=== PATIENT | female | born 1995 | race Caucasian/White ===

== ENCOUNTER 2018-03-17 16:14 | Observation (INO) | payer MEDICAID ==
[~2018-03-17] VITALS: Ht 154.9 cm; Wt 54.9 kg
[2018-03-17] MEDS ORDERED: PREN-380 PO (17:02)
[2018-03-17 17:25] VITALS: BP 102/66
== END 2018-03-17 20:17 | disposition home or self-care (01) ==
LOC: MLD 16:14
PROVIDERS: ADMIT Obstetrics & Gynecology; ATTEND Obstetrics & Gynecology
DX: O62.9 Abnormality of forces of labor, unspecified (principal); Z3A.37 37 weeks gestation of pregnancy
CPT/HCPCS: 76805; G0378; Q0092

== ENCOUNTER 2018-03-31 10:30 | Inpatient (IN) | payer MEDICAID ==
[~2018-03-31] VITALS: Ht 154.9 cm; Wt 57.2 kg
[~2018-03-31 10:30] MED LIST: PREN-380 PO
[2018-04-01] MEDS ORDERED: LIDOCAINE MPF 1% - 5 mL VIAL 10 ML ONE (05:34)
[2018-04-01] MEDS ORDERED: OXYTOCIN 10 UNITS/ML VIAL ONE (05:35)
[2018-04-01] MEDS ORDERED: BUPIVACAINE 0.125%/NS PREMIX 0 ML ONE (05:54)
[2018-04-01] MEDS ORDERED: BUPIVACAINE/DEXT 0.75% SPINAL 2 ML AMP INJ ONE (05:58)
[2018-04-01] MEDS ORDERED: OXYTOCIN 20 UNITS/LR PREMIX 1,000 ML IV ONE (06:17)
[2018-04-01] MEDS ORDERED: LIDOCAINE MPF 1% ONE (06:29)
--- NOTE | 2018-04-01 06:33 | NUR ---
PATIENT HAS BEEN SCREENED AND CATEGORIZED LOW NUTRITION RISK. PATIENT WILL BE SEEN WITHIN 7 DAYS OF ADMISSION. 04/08/18 SOLIS GILBERT MS, RDN
[2018-04-01 07:44] LABS: BASOPHILS % (AUTO) 0.4 % (0.0-2.0); EOSINOPHILS % (AUTO) 0.3 % (0.0-4.0); HEMATOCRIT 38.7 % (36-48); HEMOGLOBIN 13.1 g/dL (12.0-16.0); LYMPHOCYTES # (AUTO) 2.3 K/uL (2.5-16.5); LYMPHOCYTES % (AUTO) 29.9 % (20.5-51.1); MEAN CORPUSCULAR HEMOGLOBIN 32 pg (27-31); MEAN CORPUSCULAR HGB CONC 34 g/dL (33-37); MEAN CORPUSCULAR VOLUME 93.4 fL (80-94); MONOCYTES # (AUTO) 0.4 K/uL (0.8-1.0); MONOCYTES % (AUTO) 5.8 % (1.7-9.3); NEUTROPHILS # (AUTO) 4.9 K/uL (1.8-7.7); NEUTROPHILS % (AUTO) 63.6 % (42.2-75.2); PLATELET COUNT (AUTO) 111 K/uL (140-450); RED BLOOD CELL COUNT(AUTO) 4.14 MIL/uL (4.20-5.40); RED CELL DISTRIBUTION WIDTH 13.1 % (11.6-13.7); WHITE BLOOD COUNT (AUTO) 7.6 K/uL (4.8-10.8)
[2018-04-01 08:25] LABS: ANION GAP 15.5 (8-16); CARBON DIOXIDE 21.7 mmol/L (21-32); CREATININE 0.7 mg/dL (0.6-1.3); POTASSIUM 3.2 mmol/L (3.5-5.1)
[2018-04-01 08:33] LABS: ALBUMIN 2.8 g/dL (3.4-5.0); TOTAL BILIRUBIN 0.4 mg/dL (0.0-1.0)
[2018-04-01] MEDS ORDERED: MEASLES, MUMPS, AND RUBELLA 1 VIAL SQVAC PRN (08:40)
[2018-04-01] MEDS ORDERED: ACETAMINOPHEN 325 MG TAB PO PRN (08:40)
[2018-04-01] MEDS ORDERED: BENZOCAINE/MENTHOL 20%-0.5% 60 GM CAN TP PRN (08:40)
[2018-04-01] MEDS ORDERED: OXYTOCIN 20 UNITS in LACTATED RINGERS 1,000 ML IV SCH (08:40)
[2018-04-01] MEDS ORDERED: LIDOCAINE INJ ONE (11:15)
[2018-04-01] MEDS: IBUPROFEN 600 MG TAB PO PRN ×2 (12:31→19:42)
[2018-04-02] MEDS: IBUPROFEN 600 MG TAB PO PRN ×3 (06:28→20:25)
[2018-04-02 08:50] LABS: BASOPHILS % (AUTO) 0.2 % (0.0-2.0); EOSINOPHILS % (AUTO) 0.5 % (0.0-4.0); HEMATOCRIT 28.6 % (36-48); HEMOGLOBIN 9.8 g/dL (12.0-16.0); LYMPHOCYTES # (AUTO) 1.3 K/uL (2.5-16.5); LYMPHOCYTES % (AUTO) 13.6 % (20.5-51.1); MEAN CORPUSCULAR HEMOGLOBIN 32 pg (27-31); MEAN CORPUSCULAR HGB CONC 34 g/dL (33-37); MEAN CORPUSCULAR VOLUME 93.8 fL (80-94); MONOCYTES # (AUTO) 0.3 K/uL (0.8-1.0); MONOCYTES % (AUTO) 3.1 % (1.7-9.3); NEUTROPHILS % (AUTO) 82.6 % (42.2-75.2); PLATELET COUNT (AUTO) 110 K/uL (140-450); RED BLOOD CELL COUNT(AUTO) 3.05 MIL/uL (4.20-5.40); RED CELL DISTRIBUTION WIDTH 13.1 % (11.6-13.7); WHITE BLOOD COUNT (AUTO) 9.7 K/uL (4.8-10.8)
[2018-04-02] MEDS: DOCUSATE SODIUM 100 MG GELCAP PO PRN (21:25)
[2018-04-03] MEDS: IBUPROFEN 600 MG TAB PO PRN ×2 (04:43→19:57)
[2018-04-03] MEDS: DOCUSATE SODIUM 100 MG GELCAP PO PRN (08:23)
[2018-04-03] MEDS ORDERED: BISACODYL 5 MG TABEC PO SCH (14:25)
[2018-04-03] MEDS ORDERED: FERR325E14 PO (16:34)
[2018-04-03 16:36] LABS: RAPID PLASMA REAGIN NON-REACTIVE (Non Reactiv)
[2018-04-03] MEDS ORDERED: ACET-2619 PO (16:36)
[2018-04-03] MEDS ORDERED: DOCU-299 PO (16:37)
[2018-04-03] MEDS ORDERED: MISOPROSTOL 25 MCG TAB ONE (18:26)
[2018-04-03] MEDS ORDERED: DOCUSATE SODIUM 100 MG GELCAP PO SCH (21:00)
== END 2018-04-03 22:00 | disposition home or self-care (01) | DRG 542 ==
LOC: EDUNIT# 10:30 → MLD 04-01 04:41 → MFCC 04-01 10:05
PROVIDERS: ADMIT Obstetrics & Gynecology; ATTEND Obstetrics & Gynecology
PROC: 10E0XZZ Delivery of Products of Conception, External Approach (ICD-10-PCS; principal; 2018-04-01)
PROC: 0DQR0ZZ Repair Anal Sphincter, Open Approach (ICD-10-PCS; 2018-04-01)
PROC: 0W8NXZZ Division of Female Perineum, External Approach (ICD-10-PCS; 2018-04-01)
PROC: 3E0234Z Introduction of Serum, Toxoid and Vaccine into Muscle, Percutaneous Approach (ICD-10-PCS; 2018-04-02)
DX: O34.219 Maternal care for unspecified type scar from previous cesarean delivery (principal); O70.20 Third degree perineal laceration during delivery, unspecified; O69.81X0 Labor and delivery complicated by cord around neck, without compression, not applicable or unspecified; Z37.0 Single live birth; Z3A.39 39 weeks gestation of pregnancy; Z23 Encounter for immunization
CPT/HCPCS: 36415; 80053; 85025; 86592; 86886; 86900; 86901; 90715; J2001; J2590; J3490; J7120